=== PATIENT | female | born 1960 | race Caucasian/White ===

== ENCOUNTER → 2016-04-21 | Outpatient (CLI) | payer BC ==
[~2016-04-21] MED LIST: BACT2OIN2 TOP; CALCIUM PO; CODE30TA3 PO; FOSA70TA PO; PANT40TA2 PO; PERI0.126 MT; PROC30TA PO; VIT D PO; VITA500C10 PO
--- NOTE | 2016-04-22 14:11 | DEXA ---
AP SPINE L1 - L4 0.994 -1.6 -0.7 LT FEMUR TOTAL 0.877 -1.0 -0.3 RT FEMUR TOTAL 0.815 -1.5 -0.8 TOTAL BODY TOTAL OTHER DUAL FEMUR FRAX* ASSESSMENT Risk factors: Smoker/EtOH/secondary osteoporosis. 10 year probability of fracture Major osteoporotic fracture 6.3 % Hip fracture 1.1 % COMMENTS: There is low bone density of the spine. There is low bone density of the left hip. There is low bone density of the right hip. The increased density of the spine does represent a significant change since 07/2013. The increased density of the left hip does represent a significant change since 08/04/2013. The increased density of the right hip does represent a significant change. The density of the spine has decreased 1.9% since the initial exam on 05/2009. The spine density has increased 4.7% since the most recent exam on 07/2013. The density of the left hip has decreased 8.0% since the initial exam on 05/2009. The density of the left hip has increased 1.9% since the most recent exam on 2013. The density of the right hip has decreased 9.7% since the initial exam on 2009. The density of the right hip has increased 6.5% since the most recent exam on 2013. FOLLOW-UP: Recommendation for the next bone density exam: 2 years. KIM
== END ==
LOC: M WHC 07:39
PROVIDERS: ATTEND Internal Medicine
DX: M81.8 Other osteoporosis without current pathological fracture (principal)

== ENCOUNTER → 2016-10-28 | Outpatient (CLI) | payer BC ==
[~2016-10-28] MED LIST changes: +BACT2OIN10 TOP; -BACT2OIN2 TOP; +GABA-283; +NAPR500T PO; +NIFE30TA7; +NORCOTAB PO
--- NOTE | 2016-10-28 10:37 | REPMRS ---
Patient History The patient states she had a clinical breast exam in August 2016. Patient is postmenopausal. Family history of unknown cancer in father at age 50 or over and unknown cancer in mother at age 50 or over. Took hormonal contraceptives for 15 years. Took estrogen for 8 years. Digital Mammo Screening Bilat: October 28, 2016 - Exam #: [id number] Bilateral CC and MLO view(s) were taken. Technologist: Baylee Johnson, Technologist Prior study comparison: October 25, 2015, bilateral digital mammo screening bilat performed at [facility]. October 18, 2014, bilateral digital mammo screening bilat performed at [facility]. August 04, 2013, bilateral bilat screen digital mammo, performed at [facility] ([facility]). FINDINGS: The breast tissue is extremely dense which could obscure a lesion on mammography. There is an extremely dense symmetrical pattern of residual fibroglandular tissue. There has been no change in the appearance of the mammogram from the previous studies. There is no interval development of dominant mass, archetectural distortion, or microcalcific cluster suggestive of malignancy. ASSESSMENT: BI-RADS/ACR category 2 mammogram. Benign finding(s). Recommendation Routine screening mammogram of both breasts in 1 year (for women over age 40). This mammogram was interpreted with the aid of an FDA-approved computer-aided dectection system. Electronically Signed By: Jarek Aranda MD 10/28/16 [id number]
== END ==
LOC: M RAD 08:07
PROVIDERS: ATTEND Internal Medicine
DX: Z12.31 Encounter for screening mammogram for malignant neoplasm of breast (principal); Z78.0 Asymptomatic menopausal state; Z80.9 Family history of malignant neoplasm, unspecified; Z92.0 Personal history of contraception; Z92.23 Personal history of estrogen therapy

== ENCOUNTER 2017-01-04 11:40 | Emergency (ER) | payer OTHER, BC ==
[~2017-01-04] VITALS: Ht 170.2 cm; Wt 54.5 kg
[~2017-01-04 11:40] MED LIST changes: -GABA-283; -NAPR500T PO; -NIFE30TA7; -NORCOTAB PO
[2017-01-04 11:41] VITALS: BP 193/90
[2017-01-04] MEDS ORDERED: NIFE30TA7 (11:52)
[2017-01-04] MEDS ORDERED: GABA-283 (11:52)
--- NOTE | 2017-01-04 12:47 | REP ---
CHEST PA and LATERAL: 01/04/2017. Comparison 12/21/2014, 10/10/2013. CLINICAL HISTORY: 56-year-old female with chest pain. FINDINGS: Two-views show the lung cutler are mildly hyperinflated with prominent retrosternal clear space and increased AP diameter suggesting some hyperinflation and COPD. There is some peribronchial thickening that may reflect reactive airway disease or bronchitis. No dense consolidation, effusion, atelectasis or mass. No lateral pleural thickening, apical scarring or pneumothorax. Heart not enlarged. Airway are intact. Bony thorax without compression deformity. No free air under the diaphragm. IMPRESSION: 1. Hyperinflation and some peribronchial thickening in perihilar regions with mild prominence of pulmonary arteries. All this suggests COPD with some bronchitis or reactive airway disease. No dense consolidation or effusion. Signed by Scot Mcmahan MD 01/04/2017 01:24 P
[2017-01-04] MEDS ORDERED: NORCOTAB PO (14:43)
[2017-01-04] MEDS ORDERED: NAPR500T PO (14:43)
== END 2017-01-04 14:52 | disposition home or self-care (01) ==
LOC: M ED 11:40
DX: S20.211A Contusion of right front wall of thorax, initial encounter (principal); X50.9XXA Other and unspecified overexertion or strenuous movements or postures, initial encounter; Y92.59 Other trade areas as the place of occurrence of the external cause; Y93.89 Activity, other specified; Y99.0 Civilian activity done for income or pay; F17.210 Nicotine dependence, cigarettes, uncomplicated; Z79.899 Other long term (current) drug therapy; Z88.1 Allergy status to other antibiotic agents; Z88.2 Allergy status to sulfonamides

== ENCOUNTER 2017-01-11 07:15 | Emergency (ER) | payer OTHER, BC ==
[~2017-01-11] VITALS: Ht 170.2 cm; Wt 55.5 kg
[~2017-01-11 07:15] MED LIST changes: +GABA-283; +NAPR500T PO; +NIFE30TA7; +NORCOTAB PO
--- NOTE | 2017-01-11 08:26 | REP ---
Clinical: Right anterior rib injury. Technique: PA view of the chest with multiple oblique views of the right hemithorax. Findings: Very subtle nondisplaced fracture/injury involving the ninth and tenth ribs cannot definitively be excluded and should be correlated with mechanism of injury and point of tenderness. PA view of the chest demonstrates normal mediastinum and no obvious acute pleuroparenchymal process including pneumothorax, contusion, or effusion. Impression: Cannot definitively exclude a very subtle nondisplaced injury involving the ninth and tenth ribs. Correlation with mechanism of injury and point of tenderness may be warranted. Signed by Elan Dent MD 01/11/2017 08:18 A
[2017-01-11] MEDS ORDERED: NORCOTAB PO (08:31)
[2017-01-11 08:41] VITALS: BP 177/83
== END 2017-01-11 08:40 | disposition home or self-care (01) ==
LOC: M ED 07:15
DX: S22.41XA Multiple fractures of ribs, right side, initial encounter for closed fracture (principal); W19.XXXA Unspecified fall, initial encounter; W22.8XXA Striking against or struck by other objects, initial encounter; Y92.59 Other trade areas as the place of occurrence of the external cause; Y93.89 Activity, other specified; Y99.0 Civilian activity done for income or pay; F17.210 Nicotine dependence, cigarettes, uncomplicated; Z79.899 Other long term (current) drug therapy; Z88.1 Allergy status to other antibiotic agents; Z88.2 Allergy status to sulfonamides; Z85.819 Personal history of malignant neoplasm of unspecified site of lip, oral cavity, and pharynx

== ENCOUNTER → 2017-11-24 | Outpatient (CLI) | payer BC | LOC: M RAD 07:49 | DX: Z12.31 Encounter for screening mammogram for malignant neoplasm of breast (principal); Z92.23 Personal history of estrogen therapy | CPT/HCPCS: 77067 ==

== ENCOUNTER → 2018-02-23 | Outpatient (CLI) | payer BC ==
[~2018-02-23] MED LIST changes: -GABA-283; +GABA-845; +NAPR-50 PO; -NAPR500T PO; -PANT40TA2 PO; +PANT40TA3 PO
--- NOTE | 2018-02-23 08:15 | REP ---
Clinical: Lung screening. History nicotine dependence. Comparison: None. Technique: Axial low-dose noncontrast images from the thoracic inlet to the upper abdomen using lung screening technique. Findings: The lung cutler are well-aerated. There is a small 3 mm noncalcified density in the periphery of the anterior segment right upper lobe. No consolidation, pleural effusion/reaction or pneumothorax. Tracheobronchial tree is patent. Mediastinum demonstrates mild atherosclerotic changes of the coronary arteries without cardiomegaly. Impression: Lung-RADS category II. 3 mm nodule in the periphery of the right upper lobe. Management recommendations include annual low-dose CT follow-up examination. Reported risk of malignancy is less than 1%. Electronically Signed by Elan Dent MD 02/23/2018 08:06 A
== END ==
LOC: M RAD 07:40
PROVIDERS: ATTEND Internal Medicine
DX: Z12.2 Encounter for screening for malignant neoplasm of respiratory organs (principal); F17.210 Nicotine dependence, cigarettes, uncomplicated; R91.1 Solitary pulmonary nodule

== ENCOUNTER → 2018-03-03 | Outpatient (REF) | payer BC | LOC: M LAB REF 19:14 | PROVIDERS: ATTEND Otolaryngology | DX: C04.1 Malignant neoplasm of lateral floor of mouth (principal); F17.210 Nicotine dependence, cigarettes, uncomplicated ==

== ENCOUNTER → 2018-03-24 | Outpatient (CLI) | payer BC ==
[~2018-03-24] MED LIST changes: +ISOVUE-370 76% 100ML VIAL (Q9967) As Ordered ONE
--- NOTE | 2018-03-24 09:05 | REP ---
CT NECK WITH CONTRAST: HISTORY: Floor of mouth neoplasm. CONTRAST: Isovue 370 75 mL. The naso-, ronald- and hypopharynx, larynx and subglottic trachea are normal in appearance. The salivary and thyroid glands are normal size and density. Small lymph nodes less than 1 cm in size are present in the posterior triangles and submandibular areas. Atherosclerotic calcification is present at the carotid bifurcations. Minimal degenerative change is present in the cervical spine. The lung apices are clear. The visualized sinuses are clear. IMPRESSION: There is no neck mass or adenopathy. Electronically Signed by Naeem Chen MD 03/24/2018 09:06 A
== END ==
LOC: M RAD 07:34
PROVIDERS: ATTEND Otolaryngology
DX: C04.9 Malignant neoplasm of floor of mouth, unspecified (principal); M50.30 Other cervical disc degeneration, unspecified cervical region; I65.23 Occlusion and stenosis of bilateral carotid arteries
CPT/HCPCS: 70491; Q9967

== ENCOUNTER 2018-05-05 05:58 | Day surgery (SDC) | payer BC ==
--- NOTE | 2018-04-28 18:13 | CR ---
DATE: 04/28/2018 CONSULTATION FOR: Dr. 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 Surgery is scheduled for 05/05/2018 at [facility] ([facility]). Dear Dr. Inman: Thank you for asking me to see Ms. Ariela Weiner in consultation. She is, as you know, a 57-year-old female with past medical history of hypertension, tobacco, Raynaud's, gastroesophageal reflux disease (GERD), and oropharyngeal malignancy 2013 who had been in her usual state of health until this past March, when she noted an atypical lesion in the floor of her mouth. Biopsy was reportedly squamous cell CA. There is no evidence of spread, and the patient feels good moving forward for surgery. The patient continues to smoke three-quarters of a pack a day. She has absolutely no desire to quit and does not want to discuss it. She also drinks the equivalent of six beers a day. She has little desire to quit this as well. The patient reports significant work stressors. She is pleased that her blood pressure is as good as it is. She is compliant with her nifedipine. She denies any chest pain, palpitations, syncope, or presyncope. She also has had no difficulties with her Raynaud's. The patient denies any significant breathing problems, cough, or sputum production. The patient has GERD, and it is controlled off of pharmacologic therapy. The patient has known osteoporosis and is on a drug holiday from alendronate. The patient did a persistent cough over the holidays. She increased the use of her ProAir, and this resolved. REVIEW OF SYSTEMS Otherwise negative. She denies any fevers or chills, chest pain, or shortness of breath. PAST MEDICAL HISTORY: 1. Status post tonsillectomy/adenoidectomy. 2. History of viral arthralgias. 3. Low back pain. 4. G3, P1, spontaneous (AB) 2. History of vasectomy in her 5. Recurrent yeast infections. 6. Tobacco abuse. Previously one pack a day, now three-quarters of a pack a day. 7. Hypertension. 8. Cervical epithelial dysplasia, stage III, status post loop electrosurgical excision procedure (LEEP) procedure July 2004, followed by a vaginal hysterectomy and bilateral salpingo-oophorectomy in 2004. 9. Raynaud's 10. Bilateral cataract extraction, right 2007, left 2015. 11. 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 12. Hiatal hernia with chronic inflammation per esophagogastroduodenoscopy (EGD) in 2007 but normal hepatobiliary iminodiacetic acid (HIDA) scan in 2007. 13. Osteoporosis with history of nontraumatic foot fracture, presently on alendronate drug holiday. 14. Right carpal tunnel surgery June 2014. 15. 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 MEDICATIONS: - calcium plus D daily - fish oil daily - gabapentin 400 at bedtime - multivitamin daily - ProAir as needed - Procardia XL one daily - Replens as needed - Tylenol PM at bedtime DRUG ALLERGIES: BACTRIM with swelling in the hands and a rash. SOCIAL HISTORY: Works in [employer] at [employer] . Current smoker, three-quarters of a pack a day. Alcohol: A 6-pack a day. FAMILY HISTORY: Father with leukopenia. Mother had skin cancer, varicose veins. Sister had lupus. A grandmother with diabetes and lung cancer. PHYSICAL EXAMINATION: She is a thin female in no acute distress. VITAL SIGNS: Weight 125 with a body mass index (BMI) of 19.5, oxygen saturation is 98%, blood pressure 136/84 with a heart rate of 66. HEENT: Head is normocephalic. Neck is supple. Pupils equal, reactive to light. Extraocular movements are intact. Tympanic membranes slightly scarred. No thyromegaly. No cervical lymphadenopathy. No carotid bruits. No jugular venous distention (JVD). She has a well-healed left neck scar from previous oropharyngeal cancer. The floor of her mouth shows some atrophic scar tissue. Respiratory: Decreased breath sounds, kyphosis. CARDIOVASCULAR: Regular rate and rhythm. No murmur, rub, gallop. ABDOMEN: Thin, soft, nontender. No hepatosplenomegaly. EXTREMITIES: No cyanosis, clubbing, or edema. LABORATORY DATA: EKG 02/07/2018: Normal sinus rhythm, rate of 70, axis of 39, normal VA, QRS, QTC interval. Normal R-wave progression. Borderline left ventricular hypertrophy (LVH) with repolarization. Borderline LAE, unchanged compared to 11/05/2015. CT of the neck 03/24/2018 shows no mass or adenopathy. CT screening lung CT 02/23/2018 shows only a 3 mm nodule. Recommend annual low-dose CT scan. LABORATORY DATA: On 02/07/2018 she had a normal ALT, CBC, metabolic profile except for a sodium of 134, lipid, TSH, urinalysis (UA). IMPRESSION: Ms. Ariela Weiner is a 57-year-old female with a history of oropharyngeal malignancy, stage I, September 2013 with a small squamous cell cancer (CA) in the floor of the mouth, who will be going for wider margin resection 05/05/2018. The patient's cardiovascular risk factors are positive for tobacco abuse, hypertension, menopausal, but patient is very active and has no signs or symptoms indicative of cardiovascular ischemia and is felt to be at low risk for cardiovascular complications from the proposed surgical intervention, which can be further minimized by the following. 1. Hypertension. Take nifedipine as usual the evening before surgery. 2. Squamous cell CA of the oropharynx, residual neuropathy. Take gabapentin evening prior to surgery. 3. Tobacco abuse. Cessation advice discussed at length and refused. I have approved her taking her ProAir morning of surgery. 4. Hiatal hernia, asymptomatic without pharmacologic therapy. Takes Tums only as needed. Hold morning of surgery. 5. Osteoporosis. Hold calcium the morning of surgery. Alendronate has been on drug holiday. 6. Hyperlipidemia. Continue a healthy diet intervention. Fish oil 1 week before surgery. 7. Insomnia. She will take her Tylenol PM and gabapentin evening prior to surgery. Thank you very much for this consultation. Please call with questions or concerns. edited: 05/06/2018 [email or web address] eros ALVAREZ
[2018-05-05] VITALS (8 sets, daily range): BP systolic 127–153; BP diastolic 66–80
[~2018-05-05] VITALS: Ht 170.2 cm; Wt 53.4 kg
[~2018-05-05 05:58] MED LIST changes: +ACET300T47 PO; -CODE30TA3 PO; +FISH7.5C PO; -GABA-845; +GABA-845 PO; +HYDR-3715 PO; -ISOVUE-370 76% 100ML VIAL (Q9967) As Ordered ONE; +MULT1TAB10 PO; -NAPR-50 PO; +NAPR-837 PO; -NIFE30TA7; +NIFE30TA7 PO; -NORCOTAB PO; +TYLE1TAB5 PO
[2018-05-05] MEDS ORDERED: dexameTHASONE 4 MG/ML 1ML VIAL (J1100) IV ONE (06:00)
[2018-05-05] MEDS ORDERED: LR 1,000 ML IV ONE (06:00)
[2018-05-05] MEDS ORDERED: LIDOCAINE W/EPINEPHRINE 1% 20ML VIAL As Ordered ONE (07:09)
[2018-05-05] MEDS ORDERED: MIDAZOLAM INJ 2 MG/2 ML VIAL (J2250) As Ordered ONE (07:17)
[2018-05-05] MEDS ORDERED: ROCURONIUM BROMIDE 50 MG/5 ML VIAL As Ordered ONE (07:17)
[2018-05-05] MEDS ORDERED: fentaNYL 250 MCG/5 ML INJECTION (J3010) As Ordered ONE (07:17)
[2018-05-05] MEDS ORDERED: ONDANSETRON 4MG/2ML VIAL (J2405) As Ordered ONE (07:18)
[2018-05-05] MEDS ORDERED: LIDOCAINE 2% INJ 100 MG/5 ML SDV (FOR ANES.) As Ordered ONE (07:18)
[2018-05-05] MEDS ORDERED: PROPOFOL 200 MG/20 ML VIAL As Ordered ONE ×2 (07:18→10:55)
[2018-05-05] MEDS ORDERED: dexameTHASONE 4 MG/ML 1ML VIAL (J1100) As Ordered ONE (07:18)
[2018-05-05] MEDS ORDERED: SUCCINYLCHOLINE 100 MG/5 ML SYRINGE (J0330) As Ordered ONE (07:25)
[2018-05-05] MEDS ORDERED: OXYMETAZOLINE NASAL SPRAY (AFRIN) As Ordered ONE (07:25)
[2018-05-05] MEDS ORDERED: CEFUROXIME INJ 750 MG VIAL (J0697 PER 750MG) As Ordered ONE (07:28)
[2018-05-05] MEDS ORDERED: ePHEDrine SULFATE 25 MG/5 ML(5MG/ML) SYRINGE As Ordered ONE ×2 (07:53→08:31)
[2018-05-05] MEDS ORDERED: fentaNYL 100 MCG/2 ML INJECTION (J3010) As Ordered ONE (10:32)
[2018-05-05] MEDS ORDERED: BACITRACIN OINT 30GM As Ordered ONE (11:00)
[2018-05-05] MEDS ORDERED: ACETAMINOPHEN 325 MG TAB PO PRN (11:30)
[2018-05-05] MEDS ORDERED: METOCLOPRAMIDE INJ 10MG/2ML VIAL (J2765) IV PRN (11:30)
[2018-05-05] MEDS ORDERED: ONDANSETRON 4 MG TAB (S0181) PO PRN (11:30)
[2018-05-05] MEDS ORDERED: PERCOCET 5MG/325MG TAB PO PRN (11:45)
[2018-05-05] MEDS ORDERED: ONDANSETRON 4MG/2ML VIAL (J2405) IV PRN (11:45)
[2018-05-05] MEDS ORDERED: LR 1,000 ML IV SCH (11:45)
[2018-05-05] MEDS ORDERED: fentaNYL 100 MCG/2 ML INJECTION (J3010) IV PRN (11:45)
[2018-05-05] MEDS: NS 1,000 ML IV SCH ×2 (14:38→21:28)
[2018-05-05] MEDS: MORPHINE 4 MG/ML 1ML VIAL/SYRINGE (J2270) IV PRN ×3 (14:50→23:36)
[2018-05-05] MEDS: ASCORBIC ACID 500 MG TAB PO SCH (17:20)
[2018-05-05] MEDS: NIFEdipine 30 MG XL TAB PO SCH (17:20)
[2018-05-05] MEDS: CHLORHEXIDINE GLUCONATE 0.12 % 15ML UDC (PERIDEX ORAL RINSE) SSP SCH ×2 (17:21→19:48)
[2018-05-05] MEDS: BACITRACIN OINT 30GM TOP SCH ×2 (17:21→19:49)
[2018-05-05] MEDS ORDERED: GABAPENTIN 400 MG CAP PO SCH (21:00)
--- NOTE | 2018-05-05 21:08 | REP ---
Clinical: Feeding tube placement. Technique: Single supine view of the abdomen and pelvis. Findings: A feeding tube is identified in the left upper quadrant in seemingly satisfactory position. The bowel gas pattern is otherwise nonspecific. The irregular curvilinear area of density indents into the right mid abdomen of uncertain significance. This may represent artifact, but correlation with physical examination may be warranted. No obvious organomegaly. Skeletal structures appear intact. Impression: 1. Feeding tube in seemingly satisfactory position. 2. Curvilinear density along the right mid abdomen as described above may represent artifact although correlation may be warranted. Electronically Signed by Elan Dent MD 05/05/2018 08:59 P
[2018-05-06 04:00] VITALS: BP 128/70
[2018-05-06] MEDS: MORPHINE 4 MG/ML 1ML VIAL/SYRINGE (J2270) IV PRN ×2 (04:07→08:13)
[2018-05-06 06:06] LABS: ALBUMIN 3.3 GM/DL (3.2-5.2); ALT/SGPT 16 U/L (12-78); BILIRUBIN,TOTAL 0.7 MG/DL (0.2-1.0); BLOOD UREA NITROGEN 5 MG/DL (7-18); CARBON DIOXIDE LEVEL 29 MEQ/L (21-32); CHLORIDE LEVEL 105 MEQ/L (98-107); CREATININE FOR GFR 0.55 MG/DL (0.55-1.30); GLOMERULAR FILTRATION RATE > 60.0 (>51); GLUCOSE, FASTING 74 MG/DL (70-100); POTASSIUM SERUM 3.8 MEQ/L (3.5-5.1); SODIUM LEVEL 139 MEQ/L (136-145); TOTAL PROTEIN 6.4 GM/DL (6.4-8.2)
[2018-05-06 08:00] VITALS: BP 126/62
[2018-05-06] MEDS: ASCORBIC ACID 500 MG TAB PO SCH (08:11)
[2018-05-06 08:12] VITALS: BP 126/62
[2018-05-06] MEDS: NIFEdipine 30 MG XL TAB PO SCH (08:12)
[2018-05-06] MEDS: CHLORHEXIDINE GLUCONATE 0.12 % 15ML UDC (PERIDEX ORAL RINSE) SSP SCH (08:12)
[2018-05-06] MEDS: BACITRACIN OINT 30GM TOP SCH (08:12)
[2018-05-06] MEDS ORDERED: PERC10TA26 PO (08:41)
[2018-05-06] MEDS ORDERED: BACI50OI TOP (08:41)
--- NOTE | 2018-05-06 08:52 | DS.PDOC ---
Discharge Summary General Date of Admission Date of Discharge 05/06/2018 Primary Care Physician: Aisha Barrientos Attending Physician: KELLY DRAKE MD Discharge Summary PROCEDURES PERFORMED DURING STAY: Surgical excision of squamous cell carcinoma from the floor of mouth, with lymph node dissection ADMITTING DIAGNOSES: 1. Squamous Cell Carcinoma of the floor of mouth DISCHARGE DIAGNOSES: 1. Squamous Cell Carcinoma of the floor of mouth COMPLICATIONS/CHIEF COMPLAINT: Squamous Cell Carcinoma Of Floor Of Mouth. HISTORY OF PRESENT ILLNESS/ HOSPITAL COURSE: Patient presents for same day surgery for squamous cell carcinoma of the floor the mouth, with neck dissection. Surgery was performed by Dr. Drake. Today is post surgery day 1. Patient tolerated the surgery without any difficulty. She remained afebrile overnight. She is able tolerate by mouth food, as well as by mouth medication. She had no complaints this morning. She'll be discharged in stable condition. She will have follow-up in one week with Dr. Drake. DISCHARGE MEDICATIONS: Please see below. ALLERGIES: Please see below. PHYSICAL EXAMINATION ON DISCHARGE: VITAL SIGNS: Please see below. GENERAL APPEARANCE: Alert no acute distress. Nasogastric tube in place SKIN: Warm, well perfused. Surgical scar extending from right lateral mandible to midline of bone, no sinus infection, no purulent drainage, dried blood noted, blood in draining tube was also noted. LUNGS: Clear to auscultation bilaterally. HEART: Normal S1, S2. No murmurs, no rubs, no gallops ABDOMEN: Soft. No masses. Bowel sounds are present. EXTREMITIES: Moves all extremities equally. No gross deformities. PULSES: 2+ upper and lower extremity . LABORATORY DATA: Please see below. IMAGING: Abdominal x-ray 1. Feeding tube in seemingly satisfactory position. 2. Curvilinear density along the right mid abdomen as described above may represent artifact although correlation may be warranted. PROGNOSIS: Fair ACTIVITY: As tolerated. DIET: Mechanically soft DISCHARGE PLAN: To home, with follow-up with PCP and ENT DISCHARGE INSTRUCTIONS: 1. Maintain proper wound care 2. Follow-up with ENT ITEMS TO FOLLOWUP ON ON OUTPATIENT: 1. Surgical follow-up DISCHARGE CONDITION: Stable TIME SPENT ON DISCHARGE: Greater than 35 minutes. Vital Signs/I&Os Vital Signs Date Time Temp Pulse Resp B/P (MAP) Pulse Ox O2 Delivery O2 Flow Rate FiO2 05/06/18 08:13 18 05/06/18 08:12 126/62 05/06/18 04:00 99.5 63 99 I&O- Last 24 Hours up to 6 AM 05/06/18 06:00 Intake Total 5100 ml Output Total 4050 ml Balance 1050 ml Laboratory Data Labs 24H Laboratory Tests 2 05/06/18 05:12: Anion Gap 5L, Glomerular Filtration Rate > 60.0, Blood Urea Nitrogen 5L, Creatinine 0.55, Sodium Level 139, Potassium Level 3.8, Chloride Level 105, Carbon Dioxide Level 29, Calcium Level 8.0L, Aspartate Amino Transf (AST/SGOT) 17, Alanine Aminotransferase (ALT/SGPT) 16, Alkaline Phosphatase 49, Total Bilirubin 0.7, Total Protein 6.4, Albumin 3.3, Albumin/Globulin Ratio 1.06 CBC/BMP Laboratory Tests 05/06/18 05:12 Calcium Level 8.0 L, Aspartate Amino Transf (AST/SGOT) 17, Alanine Aminotransferase (ALT/SGPT) 16, Alkaline Phosphatase 49, Total Bilirubin 0.7, Total Protein 6.4, Albumin 3.3 Discharge Medications Scheduled (Tylenol Pm Extra Strength 500-25 mg) 1 Tab Tab, 1 TAB PO QHS, (Reported) Ascorbic Acid (Vitamin C 500 mg) 1 Chw Chw, 500 MG PO DAILY, (Reported) Bacitracin (Bacitracin) 500 Unit/Gm Oin, 0 DOSE TOP TID Use on wound 3 times a day Gabapentin (Gabapentin) 400 Mg Cap, 400 MG PO QHS, (Reported) Multivitamins (Multivitamin Adults) 1 Tab Tab, 1 TAB PO DAILY, (Reported) Nifedipine (Nifedipine ER) 30 Mg Tab, 30 MG PO DAILY, (Reported) Emerson 3 Polyunsat Fatty Acids (Fish Oil 1000 mg) 1 Cap Cap, 1 CAP PO DAILY, (Reported) [Calcium/Vit D] , 2 TABS PO DAILY, (Reported) Scheduled PRN Oxycodone/Acetaminophen (Percocet 10-325 mg) 1 Tab Tab, 1 TAB PO Q6HP PRN for pain Allergies Coded Allergies: Sulfamethoxazole w/Trimethoprim (Unverified Allergy, Mild, SWELLING OF HANDS WITH RASH, 11/08/15) GME ATTESTATION GME ATTESTATION My faculty preceptor for this patient encounter was physically present during the encounter and was fully available. All aspects of the patient interview, examination, medical decision making process, and medical care plan development were reviewed and approved by the faculty preceptor. The faculty preceptor is aware and concurs with the plan as stated in the body of this note and will attest to such by his/her cosignature. SUNNY EVERETT DO May 06, 2018 08:52
[2018-05-06] MEDS ORDERED: AUGM500T34 PO (08:55)
[2018-05-06] MEDS ORDERED: OMEGA-3 1000MG CAPSULE PO SCH (09:00)
[2018-05-06] MEDS ORDERED: MULTIVITAMINS/MINERALS THERAP 1 TAB PO SCH (09:00)
--- NOTE | 2018-06-14 12:18 | RO ---
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 PROCEDURE PERFORMED: 1. Reexcision of the squamous cell carcinoma of the floor of the mouth, left paramedian position. 2. Adjacent tissue rearrangement of the mucosa from the ventral tongue to the floor of the mouth, 3 cm x 2 cm. 3. Right neck dissection, level I, II, III. SURGEON: David Inman MD RN CASE MANAGER HOSPICE: Dr. Dawit Butts ANESTHESIA: General. CLINICAL PREAMBLE: This 57-year-old woman has had squamous cell carcinoma of the floor of the mouth resected in 2013, as well as a left neck dissection done at that time as well. The patient subsequently developed a recurrence of squamous cell carcinoma of the floor of the tongue along the left paramedian position. Management options, including reexcision of the floor of the mouth squamous cell carcinoma with a right neck dissection have been discussed with the patient and she understood and consented to the procedure. DESCRIPTION OF PROCEDURE: The patient was identified and had the right neck marked. She was brought to the operating room in stable condition. She was laid in supine position on the operating room table, the patient received general anesthesia. The patient was prepped and draped in the usual fashion for the procedure. The oral cavity was retracted open and the tongue was retracted superiorly to allow exposure of the floor of the mouth. The previously excised area over the left paramedian position on the floor of the mouth region was identified and infiltrated with 1% lidocaine with 1:100,000 epinephrine. The floor of the mouth was then excised with 1 cm depth. The specimen measured 1.4 x 0.7 cm. This was sent to pathology for intraoperative frozen section. No invasive carcinoma was identified, however, high grade dysplasia was noted on the anterior median margin. Excision was then performed to allow the clear margins on the reexcision of the tissue. The additional resection measured 1.4 x 0.9 cm in size. At this time, due to sizeable mucosal defect on the floor of the mouth, a decision was made to perform mucosal adjacent tissue rearrangement via a rhomboid flap fashion. Tissue rearrangement was 3 x 2 cm size. The mucosa was mobilized off of the ventral surface of the tongue. Meticulous undermining of the mucosa was carried out and carefully placed over the floor of the mouth anterior and medially. Suturing was performed to allow tension free closure to provide complete coverage of the mucosa to the floor of the mouth. At this time, a new set up was done to allow performance of the right neck dissection. The patient was prepped and draped in the usual fashion for the procedure. Incision was outlined over the right neck region. Skin flap was developed, along with the platysma. Platysmal flap was developed superior to the level of the marked inferior border of the mandible. The anterior border of the sternocleidomastoid muscles was identified and dissected. The facial vein was identified and ligated. This was retracted superiorly to allow protection of the marginal mandibular nerve. Fibrofatty tissue was mobilized off from the submental lymph node region. The right submandibular vein was identified and mobilized. The submandibular ganglion was identified and resected. The lingual nerve and hypoglossal nerve were identified and carefully preserved. The Gila's duct was identified and ligated and then resected to be included in the specimen as well. The submental space was then clear of the fibrofatty tissue. At this time, additional dissection was carried out on the sternocleidomastoid muscle down to the level of the omohyoid muscle. The hypoglossal and accessory nerves were identified and preserved. The internal jugular vein and the carotid artery were carefully dissected and preserved. The entire fibrofatty tissue specimen was then mobilized off from the underlying tissue to allow en-bloc resection of level I, II and III of the right cervical lymph node chain. Hemostasis was achieved using bipolar electrocautery. The hypoglossal nerve was stimulatable at the end of the case. FLORA drain was then placed. The skin was then closed in two layers. 3-0 Vicryl was used to reapproximate the platysmal muscle and Prolene was used to close the skin layer. Bacitracin was applied to the neck incision. My help desk assistant, Dr. Butts, provided the retraction to allow clear visualization of critical anatomic structures to allow safe performance of the procedure. At the end of the procedure, sponge and instrument counts were correct. No complications. Estimated blood loss less than 50 ml. General anesthesia was reversed and the patient was extubated and brought to the recovery room in stable condition. KIM
== END 2018-05-06 11:03 | disposition home or self-care (01) ==
LOC: M SDC 05:58 → M PCU 14:15 → M SDC 05-06 11:03
PROVIDERS: ATTEND Otolaryngology
DX: C04.9 Malignant neoplasm of floor of mouth, unspecified (principal); I10 Essential (primary) hypertension; I73.00 Raynaud's syndrome without gangrene; K21.9 Gastro-esophageal reflux disease without esophagitis; M81.0 Age-related osteoporosis without current pathological fracture; M54.5 Low back pain; K57.30 Diverticulosis of large intestine without perforation or abscess without bleeding; F41.9 Anxiety disorder, unspecified; R29.898 Other symptoms and signs involving the musculoskeletal system; Z88.1 Allergy status to other antibiotic agents; Z79.899 Other long term (current) drug therapy; Z72.0 Tobacco use; Z96.1 Presence of intraocular lens; Z98.41 Cataract extraction status, right eye; Z98.42 Cataract extraction status, left eye; Z85.828 Personal history of other malignant neoplasm of skin; Z90.710 Acquired absence of both cervix and uterus
CPT/HCPCS: 14040; 36415; 38724; 74018; 80053; 88305; 88307; J0330; J0697; J2250; J2270; J2405; J3010

== ENCOUNTER → 2018-05-24 | Outpatient (CLI) | payer BC ==
[~2018-05-24] MED LIST changes: -ACET300T47 PO; +AUGM500T34 PO; +BACI50OI TOP; +CODE30TA3 PO; -HYDR-3715 PO; +NAPR-50 PO; -NAPR-837 PO; +NORCOTAB PO; +PERC10TA26 PO
--- NOTE | 2018-05-25 14:07 | RADONC ---
RADIATION ONCOLOGY CONSULTATION NOTE DATE OF CONSULTATION: 05/24/2018 CHART NUMBER: [id number] DIAGNOSIS: Floor of mouth squamous cell carcinoma. STAGE: Stage I, T1N0M0. ECOG PERFORMANCE STATUS: 0. CONSULTATION NOTE: Ms. 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 HISTORY OF PRESENT ILLNESS: The patient has a long history of significant smoking and alcohol use. Apparently, she drinks ten beers day and had smoked cigarettes daily for over 35 years. In mid 2013, she was found to have an area under her tongue on the left side. This was resected on 09/06/2013 and found to be a moderately differentiated squamous cell carcinoma. On 10/16/2013, the patient underwent a re-excision of her floor of mouth. Pathology revealed fragments of hyperkeratotic and parakeratotic squamous mucosa with benign submucosal salivary gland tissue. There was no residual carcinoma seen. Total of two lymph nodes were resected on the left at the level 1 region and no metastatic carcinoma was seen. There was one benign submandibular gland. There was also resection at the levels II and III region in the left neck and again no evidence of satish metastatic disease was found. The patient was followed closely by Dr. Inman and has done well overall for 4-1/2 years. On 03/03/2018, the patient was pound found to have a lesion in the mid floor of the mouth, which underwent resection and pathology revealed a superficially invasive squamous cell carcinoma, which was well-differentiated. All margins of resection were free of malignancy. On 05/05/2018, Dr. nIman went into re-excise the patient's floor of mouth, as well as to remove lymph nodes in the right and left neck. There was no residual invasive cell carcinoma in the floor of mouth. There was high-grade squamous dysplasia of the anterior and medial margins. There was also focal mild to moderate squamous dysplasia in a second resected specimen. A total of five lymph nodes were sampled on the right, which were all negative for malignancy, as was one lymph node at the level II lymph node in the left, which was also negative for malignancy. The tumor has therefore been staged as a stage I, T1N0M0 well-differentiated squamous cell carcinoma of the floor of mouth. PAST MEDICAL HISTORY: The patient's past medical history is positive for cataracts in the right eye, which were resected in 2007 and cataract in the left eye which was taken out in 2016. She had a hysterectomy. The patient had a tonsillectomy as well. She was reported to have some type of malignant skin cancer removed in 2014. ALLERGIES: The patient is allergic to BACTRIM. SOCIAL HISTORY: As noted above, the patient has smoked for the past 35 years, at least a pack of cigarettes per day. She drinks eight to ten cans of beer a day. FAMILY HISTORY: The patient's family history is positive for her mother with skin cancer. REVIEW OF SYSTEMS: The patient's review of systems is noncontributory. Denies nausea, vomiting, fevers, chills, night sweats, diplopia, headaches, anxiety or depression, anorexia, weight loss, visual disturbances, chest pain, urinary or bowel difficulties, bone pain, or neurological problems. PHYSICAL EXAMINATION The patient is a well-developed, well-nourished 57-year-old white female in no acute distress. HEENT: Exam is normocephalic, atraumatic. Extraocular movements are intact. Examination of the patient's oral cavity reveals her to be healing nicely from her surgery. I see no other evidence of nodularity ulceration or residual disease. There is no palpable preauricular, cervical, supraclavicular, infraclavicular or axillary lymphadenopathy present. She has a healed surgical scar present over neck consistent with her above history. Her lungs are clear to auscultation and percussion. Heart has regular rate and rhythm. ASSESSMENT: I had a lengthy discussion with this patient. At this time, I am quite concerned with her rather heavy smoking and drinking, which has led to two malignancies already in this rather young woman. I have had a long discussion with the need to stop smoking as soon as possible and stop the drinking too. I stressed to her that she has been quite jose luis having well-differentiated tiny tumors with no lymphadenopathy, which could be taken care of with resection alone. If she continues on her present path undoubtedly she will develop a new malignancy and may not be as jose luis. I explained to the patient that at this time I do not see a role for radiation. Indeed, I think she is likely to develop a malignancy in another head and neck site or lung if she is to have recurrence in the floor of mouth. I have reviewed the NCCN guidelines for recurrent head and neck cancers. Following the path for a local recurrence that is resectable, the recommendation would be surgery and if no adverse features found at surgery then observation. The adverse features include extranodal extension and/or positive margins. I think this patient is at high risk for another head and neck malignancy and I have recommended at this point close observation. Since we are almost 5 years since the initial tumor, I believe this is most likely new primary site and therefore appropriately staged as grade 1, stage I, T1N0M0 malignancy, in which case the curative treatment of course would be resection alone. Even if this were a recurrence, it would still be limited and the guidelines recommend just followup. Again, there were no adverse features, such as extranodal extension, positive margins, a T3 or T4 lesion, N2 or N3 disease, perineural invasion, vascular invasion or lymphatic invasion. Had any of these taken place then of course the recommendations would be different and I would be more willing to consider postoperative radiation therapy. I have scheduled the patient for discussion at our multidisciplinary tumor conference. The patient is scheduled to be seen by Dr. Inman in 4 weeks and will continue close followup indefinitely through his office. Once again, I have discussed in detail the risks and the likelihood of developing another head and neck or lung malignancy if she does not undergo smoking cessation and discontinuation of the alcohol intake. She has been quite jose luis so far. cc: MD Aisha Fan MD MTDD
== END ==
LOC: M ONCR 09:21
PROVIDERS: ATTEND Radiology Radiation Oncology
DX: C04.9 Malignant neoplasm of floor of mouth, unspecified (principal)

== ENCOUNTER → 2018-07-06 | Outpatient (CLI) | payer BC ==
[~2018-07-06] MED LIST changes: +ACET300T47 PO; -CODE30TA3 PO; +HYDR-3715 PO; -NAPR-50 PO; +NAPR-837 PO; -NORCOTAB PO
--- NOTE | 2018-07-08 10:07 | DEXA ---
AP SPINE L1 - L4 0.964 -1.9 -1.0 LT FEMUR TOTAL 0.841 -1.3 -0.6 LT NECK 0.846 -1.4 -0.3 RT FEMUR TOTAL 0.808 -1.6 -0.9 RT NECK 0.777 -1.9 -0.8 TOTAL BODY TOTAL OTHER COMMENTS: There is low bone density of the spine. The decreased density of the spine does represent a significant change. The decreased density of the left hip does represent a significant change. The decreased density of the right hip does not represent a significant change. The density of the spine has decreased 4.8% since the initial exam on 06/17/2009. The spine density has decreased 3.0% since the most recent exam on 04/21/2016. The density of the left hip has decreased 11.8% since the initial exam on 06/17/2009. The density of the left hip has decreased 4.1% since the most recent exam on 04/21/2016. The density of the right hip has decreased 10.5% since the initial exam on 06/17/2009. The density of the right hip has decreased 0.9% since the most recent exam on 04/21/2016. FOLLOW-UP: Recommendation for the next bone density exam: 2 years. KIM
== END ==
LOC: M WHC 08:00
PROVIDERS: ATTEND Internal Medicine
DX: M85.89 Other specified disorders of bone density and structure, multiple sites (principal)

== ENCOUNTER 2018-08-23 06:02 | Emergency (ER) | payer BC ==
[~2018-08-23] VITALS: Ht 170.2 cm; Wt 55.5 kg
[2018-08-23] MEDS ORDERED: NS 1,000 ML IV ONE (06:30)
[2018-08-23 06:49] LABS: BASO # 0.1 10^3/uL (0.0-0.2); BASO % 0.9 % (0.0-1.0); EOS # 0.1 10^3/uL (0.0-0.50); EOS % 0.9 % (0.0-3.0); HEMATOCRIT 36.3 % (36.0-47.0); HEMOGLOBIN 12.6 g/dl (12.0-15.5); LYMPH # 1.5 10^3/uL (1.5-4.5); LYMPH % 18.6 % (24.0-44.0); MEAN CORPUSCULAR HEMOGLOBIN 34.1 pg (27.0-33.0); MEAN CORPUSCULAR HGB CONC 34.7 g/dl (32.0-36.5); MEAN CORPUSCULAR VOLUME 98.1 fl (80.0-96.0); MONO # 0.8 10^3/uL (0.0-0.8); MONO % 10.8 % (0.0-5.0); NEUTROPHILS # 5.3 10^3/uL (1.8-7.7); NEUTROPHILS % 68.3 % (36.0-66.0); PLATELET COUNT, AUTOMATED 234 10^3/uL (150-450); WHITE BLOOD COUNT 7.8 10^3/uL (4.0-10.0)
[2018-08-23 06:53] LABS: ALBUMIN 4.3 GM/DL (3.2-5.2); ALT/SGPT 27 U/L (12-78); BILIRUBIN,DIRECT 0.2 MG/DL (0.0-0.2); BILIRUBIN,TOTAL 0.6 MG/DL (0.2-1.0); BLOOD UREA NITROGEN 8 MG/DL (7-18); CARBON DIOXIDE LEVEL 25 MEQ/L (21-32); CHLORIDE LEVEL 99 MEQ/L (98-107); CREATININE FOR GFR 0.74 MG/DL (0.55-1.30); GLOMERULAR FILTRATION RATE > 60.0 (>51); GLUCOSE, FASTING 103 MG/DL (70-100); LIPASE 137 U/L (73-393); POTASSIUM SERUM 4.4 MEQ/L (3.5-5.1); SODIUM LEVEL 132 MEQ/L (136-145); TOTAL PROTEIN 7.9 GM/DL (6.4-8.2)
--- NOTE | 2018-08-23 08:38 | REPVR ---
EXAM: CT Abdomen and Pelvis Without Contrast EXAM DATE/TIME: 08/23/2018 6:50 AM CLINICAL HISTORY: 57 years old, female; Abdominal pain; Acute; Prior surgery; Surgery date: 6+ months; Surgery type: Hysteron for cancer; Additional info: Rlq/r flank pain TECHNIQUE: Imaging protocol: Axial computed tomography images of the abdomen and pelvis without contrast. Coronal and sagittal reformatted images were created and reviewed. Radiation optimization: All CT scans at this facility use at least one of these dose optimization techniques: automated exposure control; mA and/or kV adjustment per patient size (includes targeted exams where dose is matched to clinical indication); or iterative reconstruction. COMPARISON: CT ABD PELVIS W/O CONTRAST 03/23/2014 4:45 PM FINDINGS: Liver: Hepatomegaly longitudinal diameter 18.2 CM. Gallbladder and bile ducts: Normal. No calcified stones. No ductal dilation. Pancreas: Normal. No ductal dilation. Spleen: Normal. No splenomegaly. Adrenals: Normal. No mass. Kidneys and ureters: Nonspecific left perinephric soft tissue stranding. Stomach and bowel: Limitation by the lack of contrast media for detailed organ and bowel assessment. Accentuation of the wall of the stomach which may be on the basis of nondistention. Extensive colonic diverticulosis. Focal fluid-filled distal small bowel confluent in the right pelvis. Appendix: No evidence of appendicitis. Intraperitoneal space: Normal. No free air. No significant fluid collection. Vasculature: Calcified abdominal aorta. Lymph nodes: Normal. No enlarged lymph nodes. Bladder: Unremarkable as visualized. Reproductive: Postoperative hysterectomy with prominent vaginal cuff site soft tissues. Bones/joints: Degenerative change of the spine. Degenerative vacuum disc L5-S1 with interspace narrowing. Soft tissues: Unremarkable. IMPRESSION: 1. Mild asymmetric accentuated left perinephric soft tissue stranding with minimal left proximal ureteral dilatation without visualized obstructing lesion. Correlate clinically for the possibility of other etiologies of mild ureteral obstruction or infection etiology of the left kidney. The extent of left perinephric stranding is similar compared to the prior CT of 03/23/14. 2. Prominent colonic diverticulosis. 3. Focal fluid-filled distal small bowel in the right pelvis limited in assessment without overall obstructive pattern. Electronically signed by: Patricia David On 08/23/2018 08:38:05 AM
[2018-08-23 09:52] VITALS: BP 139/65
--- NOTE | 2018-08-29 14:42 | ED PDOC ---
Post-Departure Follow-Up dr childers faxed formal report of ct abd/p for fu Jackie Blanc MD Aug 29, 2018 14:42
== END 2018-08-23 10:06 | disposition home or self-care (01) ==
LOC: M ED 06:02
DX: K57.90 Diverticulosis of intestine, part unspecified, without perforation or abscess without bleeding (principal); K52.9 Noninfective gastroenteritis and colitis, unspecified; N28.89 Other specified disorders of kidney and ureter; I10 Essential (primary) hypertension; Z79.899 Other long term (current) drug therapy; Z88.2 Allergy status to sulfonamides; Z88.8 Allergy status to other drugs, medicaments and biological substances; F17.210 Nicotine dependence, cigarettes, uncomplicated

== ENCOUNTER → 2018-12-26 | Outpatient (REF) | payer BC | LOC: M LAB REF 13:08 | PROVIDERS: ATTEND Otolaryngology | DX: C04.9 Malignant neoplasm of floor of mouth, unspecified (principal) ==

== ENCOUNTER → 2018-12-30 | Outpatient (CLI) | payer BC ==
--- NOTE | 2018-12-30 08:24 | REPMRS ---
Patient History The patient states she had a clinical breast exam in 2018.Patient is postmenopausal. Family history of unknown cancer at age 50 or over in mother, unknown cancer at age 50 or over in father. Took hormonal contraceptives for 15 years. Took estrogen for 8 years. Digital Mammo Screening Bilat: December 30, 2018 - Exam #: [id number] Bilateral CC and MLO view(s) were taken. Technologist: Marielena Marshall, Technologist Prior study comparison: November 24, 2017, bilateral digital mammo screening bilat performed at [facility]. October 28, 2016, bilateral digital mammo screening bilat performed at [facility]. October 25, 2015, bilateral digital mammo screening bilat performed at [facility]. FINDINGS: The breast tissue is extremely dense which could obscure a lesion on mammography. There is an extremely dense symmetrical pattern of residual fibroglandular tissue. There has been no change in the appearance of the mammogram from the previous studies. There is no interval development of dominant mass, archetectural distortion, or grouped microcalcifications suggestive of malignancy. 3-D tomosynthesis shows no additional findings. Assessment: BI-RADS/ACR category 1 mammogram. Negative Mammogram. Recommendation Routine screening mammogram of both breasts in 1 year (for women over age 40). This patient's Lifetime Breast Cancer RIsk is estimated at 6.4 %. This mammogram was interpreted with the aid of an FDA-approved computer-aided dectection system. Electronically Signed By: Jarek Aranda MD 12/30/18 0823
== END ==
LOC: M RAD 07:53
PROVIDERS: ATTEND Internal Medicine
DX: Z12.31 Encounter for screening mammogram for malignant neoplasm of breast (principal)

== ENCOUNTER → 2019-01-11 | Outpatient (CLI) | payer BC ==
[~2019-01-11] MED LIST changes: +ACET25TA12 PO; +ALEN70TA74 PO; +CALC1TAB63 PO; +CALC500T38 PO; +ISOVUE-370 76% 100ML VIAL (Q9967) As Ordered ONE; +MULTTAB24 PO
--- NOTE | 2019-01-11 10:38 | REP ---
CT neck: 01/11/2019. Indication: Neck mass. Comparison: 03/24/2018. Technique: Axial images of the neck soft tissues were obtained following IV administration of 75 ml Isovue 370. Findings: There is no abnormal solid soft tissue mass, abnormal fluid collection or cervical lymphadenopathy. Bilateral carotid atherosclerotic disease is present. The submandibular, parotid and thyroid glands are without focal abnormality. No significant ocular, intraorbital or intracranial abnormalities are detected. The airway is patent. The visualized lungs are clear. Impression: No abnormal solid soft tissue mass, abnormal fluid collection or cervical lymphadenopathy. Electronically Signed by aGbriele Ellis DO 01/11/2019 10:30 A
== END ==
LOC: M RAD 09:17
PROVIDERS: ATTEND Otolaryngology
DX: C04.9 Malignant neoplasm of floor of mouth, unspecified (principal)
CPT/HCPCS: 70491; Q9967

== ENCOUNTER 2019-01-13 08:54 | Day surgery (SDC) | payer BC ==
--- NOTE | 2019-01-12 02:25 | CR ---
DATE OF CONSULTATION: 01/13/2019 Preoperative consultation on Ariela Weiner for Dr. Inman for surgery scheduled 01/13/2019, for recurrent squamous cell carcinoma (CA) of the floor of the mouth. Dear Dr. Inman: Thank you very much for asking me to see Ms. Ariela Weiner in consultation prior to her oral surgery dissection of recurrence of squamous cell CA. As you know, Ms. Weiner is a 58-year-old female with a past medical history of hypertension, gastroesophageal reflux disease (GERD), Raynaud's, tobacco abuse, oropharyngeal malignancy dating back to 2013, who has been in her usual state of health until noting an atypical area on the floor of her mouth about 2 months ago[address] Patient contacted Dr. Inman's office for appointment, and biopsy confirmed a recurrence of her squamous cell CA. The patient is not upset about this, feels it is life, and is eager to get the surgery over and get on with her life. Patient continues to smoke and drink. She has little to no desire of cutting back or quitting. Patient reports significant work stressors and even today, at her preoperative visit, is eager to get back to work. Patient has history of GERD, symptomatically controlled without pharmacologic therapy. Patient does have occasional dyspnea and sparingly uses her ProAir. Patient has history of Raynaud's. She is on Procardia but will do conservative intervention as well. Patient has history of atrophic vaginitis, uses her Replens. Patient has history of hypertension but denies chest pain, palpitations, syncope, or presyncope. PAST MEDICAL HISTORY: 1. Status post tonsillectomy/adenoidectomy. 2. History of viral arthralgias. 3. Chronic low back pain. 4. G3, P1, spontaneous (AB) 2, history of a vasectomy. 5. Recurrent yeast infections. 6. Tobacco abuse. 7. Hypertension. 8. Cervical epithelial dysplasia stage III, status post loop electrosurgical excision procedure (LEEP) procedure 2004 followed by a vaginal hysterectomy with bilateral salpingo-oophorectomy (BSO) in 2004. 9. Raynaud's. 10. Bilateral cataract extraction 2007 and 2015. 11. Squamous cell CA of the left frazier 2012. 12. Squamous cell CA of the oropharynx stage I malignancy status post resection September 2013 and recurrent resection April 2018. 13. Hiatal hernia with chronic inflammation per esophagogastroduodenoscopy (EGD) 2007. Normal hepatobiliary iminodiacetic acid (HIDA) scan 2007. 14. Osteoporosis. 15. History of nontraumatic foot fracture treated with alendronate followed by drug holiday and resumption of alendronate. 16. Right carpal tunnel surgery June of 2014. MEDICATIONS: - alendronate 70 mg weekly - calcium citrate plus D twice a day - gabapentin 400 mg at bedtime - multivitamin daily - ProAir as needed - Procardia XL 30 mg daily - Replens topically 2-3 times a week - Tylenol PM as needed at bedtime ALLERGIES: The patient's drug allergies are to BACTRIM. She did have gastrointestinal (GI) side effects on Chantix. SOCIAL HISTORY: Works in the [employer]. . Current smoker. Current heavy drinker. FAMILY HISTORY: Father with leukopenia. Mother had skin cancer, varicose veins. Sister lupus. A grandmother with diabetes and lung cancer. PHYSICAL EXAMINATION: Thin female, anxious, eager to get back to work, but in no acute distress. Vital signs are weight 126 with a body mass index (BMI) of 19.6. Oxygen saturation after exertion is 100%. Blood pressure 142/74 with a heart rate of 65. Head is normocephalic. Neck is supple. Pupils equal, reactive to light. Extraocular movements are intact. Tympanic membranes slightly scarred. No thyromegaly, cervical lymphadenopathy, carotid bruits, or jugular venous distention (JVD). She has a well-healed left neck scar from previous oropharyngeal cancer. The floor of her mouth shows a biopsy scar but no significant pathology. Respiratory: Kyphosis. Decreased breath sounds. Cardiovascular: Regular rate, rhythm. No murmur, rub, or gallop. Abdomen: Soft and nontender. No hepatosplenomegaly. Extremities: No cyanosis, clubbing, or edema. LABORATORY DATA: Today, 01/06/2019, normal CBC, med profile, liver panel. EKG normal sinus rhythm, rate of 65, axis of 45. Normal IN, QRS, QTc interval. Normal R-wave progression, but borderline left ventricular hypertrophy (LVH), left atrial enlargement (LAE), and repolarization changes without significant change compared to previous EKG. IMPRESSION: Ms. Ariela Ren, 58-year-old female, history of stage I oropharyngeal malignancy September 2013, who had a recurrence and resection in April of 2018, now presents with a second recurrence. Patient's cardiovascular risk factors are positive for tobacco abuse, hypertension, menopause, but she is active with no signs or symptoms of cardiovascular ischemia and is felt to be optimized and at low risk for cardiovascular complications from the proposed surgical intervention. Risks can be further minimized by the following: PROBLEMS: 1. Hypertension. Take nifedipine as usual morning before surgery. 2. Tobacco abuse. Cessation advice given. Patient not interested. She will use ProAir prophylactically before surgery. 3. Hiatal hernia, asymptomatic. Takes Tums only on an as-needed basis. 4. Osteoporosis. Hold alendronate, calcium D morning of surgery. 5. Hyperlipidemia. Fish oil already on hold. 6. Insomnia. She will take her gabapentin and Tylenol PM as needed before surgical intervention. 7. Squamous cell CA of the neck. She is on the gabapentin for some residual nerve-based pain. She will take this as usual the evening prior to surgery. Thank you very much for this consultation. Please call with questions or concerns.
[~2019-01-13] VITALS: Ht 172.7 cm; Wt 55.8 kg
[~2019-01-13 08:54] MED LIST changes: -ISOVUE-370 76% 100ML VIAL (Q9967) As Ordered ONE; +LR 1,000 ML IV ONE; +dexameTHASONE 4 MG/ML 1ML VIAL (J1100) IV ONE
[2019-01-13] MEDS ORDERED: LIDOCAINE 2% INJ 100 MG/5 ML SDV (FOR ANES.) As Ordered ONE (10:28)
[2019-01-13] MEDS ORDERED: fentaNYL 250 MCG/5 ML INJECTION (J3010) As Ordered ONE (10:28)
[2019-01-13] MEDS ORDERED: MIDAZOLAM INJ 2 MG/2 ML VIAL (J2250) As Ordered ONE (10:28)
[2019-01-13] MEDS ORDERED: ROCURONIUM BROMIDE 50 MG/5 ML VIAL As Ordered ONE ×2 (10:28→12:14)
[2019-01-13] MEDS ORDERED: PROPOFOL 200 MG/20 ML VIAL As Ordered ONE ×2 (10:28→12:36)
[2019-01-13] MEDS ORDERED: LIDOCAINE W/EPINEPHRINE 1% 20ML VIAL As Ordered ONE (11:03)
[2019-01-13] MEDS ORDERED: PHENYLEPHRINE 0.5% NASAL SPRAY 15 ML As Ordered ONE (11:42)
[2019-01-13] MEDS ORDERED: ePHEDrine SULFATE 25 MG/5 ML(5MG/ML) SYRINGE As Ordered ONE (12:13)
[2019-01-13] MEDS ORDERED: GLYCOPYRROLATE INJ 0.2 MG/ML 2 ML VIAL As Ordered ONE (12:31)
[2019-01-13] MEDS ORDERED: ONDANSETRON 4MG/2ML VIAL (J2405) As Ordered ONE (12:45)
[2019-01-13] MEDS ORDERED: HYDROMORPHONE HCL 0.5 MG/ 0.5 ML SYRINGE (J1170 PER 1) IV PRN (14:00)
[2019-01-13] MEDS ORDERED: fentaNYL 100 MCG/2 ML INJECTION (J3010) IV PRN (14:00)
[2019-01-13] MEDS ORDERED: ONDANSETRON 4MG/2ML VIAL (J2405) IV PRN (14:00)
[2019-01-13] MEDS ORDERED: METOCLOPRAMIDE INJ 10MG/2ML VIAL (J2765) IV PRN (14:00)
[2019-01-13] MEDS ORDERED: LR 1,000 ML IV SCH (14:00)
[2019-01-13 14:45] VITALS: BP 145/74
== END 2019-01-13 15:05 | disposition home or self-care (01) ==
LOC: M SDC 08:54
PROVIDERS: ATTEND Otolaryngology
DX: C04.9 Malignant neoplasm of floor of mouth, unspecified (principal); I10 Essential (primary) hypertension; M81.0 Age-related osteoporosis without current pathological fracture; K44.9 Diaphragmatic hernia without obstruction or gangrene; K21.9 Gastro-esophageal reflux disease without esophagitis; G47.00 Insomnia, unspecified; Z88.2 Allergy status to sulfonamides; Z88.8 Allergy status to other drugs, medicaments and biological substances; Z79.899 Other long term (current) drug therapy; F17.218 Nicotine dependence, cigarettes, with other nicotine-induced disorders
CPT/HCPCS: 41116; 88305; J0697; J1100; J2250; J2405; J3010

== ENCOUNTER → 2019-02-17 | Outpatient (CLI) | payer BC ==
[~2019-02-17] MED LIST changes: -LR 1,000 ML IV ONE; -dexameTHASONE 4 MG/ML 1ML VIAL (J1100) IV ONE
--- NOTE | 2019-02-17 12:22 | REP ---
LOW DOSE LUNG SCREENING CT: Low dose lung screening CT is performed without the use of intravenous contrast and compared with a prior study of 02/23/2018. There is very mild fibrotic change bilaterally, which is stable. There is no new nodular opacity or consolidative infiltrate bilaterally. Heart is normal in size. No mediastinal contour abnormality is seen. There is no thoracic aortic aneurysm. There is no pleural effusion. There are degenerative changes of the spine. IMPRESSION: Lung RADS category 2 benign findings, stable. No new nodular opacity or consolidative infiltrate. Yearly screening lung CT recommended. Electronically Signed by Colin Easton MD 02/17/2019 04:52 P
== END ==
LOC: M RAD 11:11
PROVIDERS: ATTEND Radiology Radiation Oncology
DX: F17.210 Nicotine dependence, cigarettes, uncomplicated (principal)

== ENCOUNTER → 2020-02-14 | Outpatient (CLI) | payer BC ==
[~2020-02-14] MED LIST changes: +NIFE1TAB52 PO; -NIFE30TA7 PO; +PANT40TA29 PO; -PANT40TA3 PO
--- NOTE | 2020-02-14 08:50 | REPMRS ---
Patient History The patient states she had a clinical breast exam in 07/18 Patient is postmenopausal. Family history of unknown cancer at age 50 or over in mother, unknown cancer at age 50 or over in father. Took hormonal contraceptives for 15 years. Took estrogen for 8 years. Digital Woman Screen Mammo: February 14, 2020 - Exam #: [id number] Bilateral CC and MLO view(s) were taken. Technologist: Erna Joya, Technologist Prior study comparison: December 30, 2018, bilateral digital mammo screening bilat, performed at [facility]. November 24, 2017, bilateral digital mammo screening bilat, performed at [facility]. October 28, 2016, bilateral digital mammo screening bilat, performed at [facility]. FINDINGS: The breast tissue is extremely dense which could obscure a lesion on mammography. The Volpara volumetric breast density category is: D. There is an extremely dense symmetrical pattern of residual fibroglandular tissue. There has been no change in the appearance of the mammogram from the previous studies. There is no interval development of dominant mass, archetectural distortion, or grouped microcalcifications suggestive of malignancy. 3-D tomosynthesis shows no additional findings. Assessment: BI-RADS/ACR category 1 mammogram. Negative Mammogram. Recommendation Routine screening mammogram of both breasts in 1 year (for women over age 40). This patient's [facility] Lifetime Breast Cancer RIsk is estimated at 6.2 %. This mammogram was interpreted with the aid of an FDA-approved computer-aided dectection system. Electronically Signed By: Jarek Aranda MD 02/14/20 0829
== END ==
LOC: M WHC 06:20
PROVIDERS: ATTEND Internal Medicine
DX: Z12.31 Encounter for screening mammogram for malignant neoplasm of breast (principal); Z80.9 Family history of malignant neoplasm, unspecified

== ENCOUNTER → 2020-05-08 | Outpatient (CLI) | payer BC ==
[~2020-05-08] MED LIST changes: -ALEN70TA74 PO; +ALEN70TA82 PO
--- NOTE | 2020-05-08 08:23 | REP ---
INDICATION: LUNG SCREENING EXAM COMPARISON: 02/17/2019, 02/23/2018 TECHNIQUE: Axial noncontrast images from the thoracic inlet to the upper abdomen using low-dose lung screening technique (LDCT). FINDINGS: The bilateral lung cutler are well aerated, relatively symmetric and clear. Previously identified 3 mm nodule in the periphery of the right upper lobe appears less prominent and likely reflects small scarring. No acute consolidation, significant nodule or mass lesion appreciated. No pleural effusion. No pneumothorax. Tracheobronchial tree is patent. IMPRESSION: Lung-RADS category 2. No suspicious nodule or mass lesion. Management recommendations include annual low-dose CT surveillance. <Electronically signed by Elan Dent > 05/08/20 0819
== END ==
LOC: M RAD 06:53
PROVIDERS: ATTEND Internal Medicine
DX: Z12.2 Encounter for screening for malignant neoplasm of respiratory organs (principal); F17.210 Nicotine dependence, cigarettes, uncomplicated

== ENCOUNTER → 2020-12-05 | Outpatient (CLI) | payer BC ==
[~2020-12-05] MED LIST changes: +GABA-283 PO; -GABA-845 PO
--- NOTE | 2020-12-05 09:08 | REP ---
INDICATION: LEFT AXILLARY LUMP. Left breast lump x2 months. Patient reports COVID 19 immunization shots in the left arm in March. COMPARISON: Comparison mammography February 14 2020, December 30, 2018, and November 24, 2017. TECHNIQUE: Routine CC and MLO views of the left breast are obtained. 3D tomography is deployed. The palpable lump location could not be included in the imaging field of view mammographically. Targeted left axillary and complete left axillary sonography or therefore performed. This mammogram was interpreted with the aid of an FDA-approved computer-aided detection system. FINDINGS: Breast parenchyma remains extremely dense in a pattern which may inhibit the sensitivity mammography. No dominant density is seen. No architectural distortion or microcalcification is appreciated. No worrisome skin changes seen. No adenopathy is visible in the imaged portion of the left axilla. The Volpara volumetric breast density pattern is D. Targeted ultrasound: Left axillary and targeted sonography are performed. At the site of the palpable lump, there is a lymph node measuring 1.0 x 0.5 x 0.8 cm. This has a normal thickness, 2 mm, cortical margin. Echogenic fatty hilar architecture is preserved. No abnormal features. Elsewhere in the left breast there are several other lymph nodes. Cortical margins are cyst somewhat thinner on these other lymph nodes in the are also benign in appearance. The largest of these is 2.1 x 0.8 x 1.4 cm. IMPRESSION: BIRADS/ACR category 3 probably benign left breast/axillary mammographic and sonographic findings. Benign appearing lymph node at the site of the palpable lump. This patient's Tyrer-Cuzick lifetime breast cancer risk assessment score is 6.0%. RECOMMENDATION: Repeat left axillary sonography recommended in 6 months. Repeat bilateral mammography in 1 year. The patient letter being requested is M 3 dense. <Electronically signed by Jarek Aranda > 12/05/20 0925
== END ==
LOC: M WHC 07:52
PROVIDERS: ATTEND Internal Medicine
DX: N63.32 Unspecified lump in axillary tail of the left breast (principal)
CPT/HCPCS: 76882; 77065; G0279

== ENCOUNTER → 2021-02-14 | Outpatient (CLI) | payer BC | LOC: M WHC 07:57 | PROVIDERS: ATTEND Internal Medicine | DX: Z12.31 Encounter for screening mammogram for malignant neoplasm of breast (principal); M81.0 Age-related osteoporosis without current pathological fracture ==

== ENCOUNTER → 2021-05-09 | Outpatient (CLI) | payer BC | LOC: M RAD 07:04 | PROVIDERS: ATTEND Internal Medicine | DX: R91.1 Solitary pulmonary nodule (principal); Z12.2 Encounter for screening for malignant neoplasm of respiratory organs; F17.210 Nicotine dependence, cigarettes, uncomplicated ==

== ENCOUNTER → 2021-06-18 | Outpatient (CLI) | payer BC | LOC: M WHC 06:49 | PROVIDERS: ATTEND Internal Medicine | DX: N63.20 Unspecified lump in the left breast, unspecified quadrant (principal) ==

== ENCOUNTER → 2022-05-13 | Outpatient (CLI) | payer BC ==
[~2022-05-13] MED LIST changes: +ALEN70TA87 PO; +FISH10005 PO; -FISH7.5C PO; -FOSA70TA PO
== END ==
LOC: M RAD 06:08
PROVIDERS: ATTEND Internal Medicine
DX: M54.14 Radiculopathy, thoracic region (principal)

== ENCOUNTER → 2022-05-18 | Outpatient (CLI) | payer BC | LOC: M RAD 06:24 | PROVIDERS: ATTEND Internal Medicine | DX: Z87.891 Personal history of nicotine dependence (principal) ==

== ENCOUNTER 2022-07-25 02:38 | Emergency (ER) | payer BC ==
[~2022-07-25] VITALS: Ht 170.2 cm; Wt 54.0 kg
[2022-07-25 06:04] VITALS: BP 156/74
[2022-07-25] MEDS ORDERED: NS 1,000 ML IV ONE (06:20)
[2022-07-25] MEDS ORDERED: ONDANSETRON 4MG 2ML VIAL IV ONE (06:20)
[2022-07-25] MEDS ORDERED: MORPHINE 4 MG/ML 1ML VIAL IV ONE (06:20)
[2022-07-25] MEDS ORDERED: LIDOCAINE 5% (LIDODERM) PATCH TD ONE (06:20)
[2022-07-25] MEDS ORDERED: ISOVUE-370 76% 100ML VIAL As Ordered ONE (06:24)
[2022-07-25 06:49] LABS: BASO # 0.1 10^3/uL (0.0-0.2); BASO % 1.1 % (0.0-1.0); EOS # 0.1 10^3/uL (0.0-0.5); EOS % 1.3 % (0.0-3.0); HEMATOCRIT 36.6 % (36.0-47.0); HEMOGLOBIN 12.8 g/dl (12.0-15.5); LYMPH # 1.5 10^3/uL (1.5-5.0); MEAN CORPUSCULAR HEMOGLOBIN 34.3 pg (27.0-33.0); MEAN CORPUSCULAR VOLUME 98.1 fl (80.0-96.0); MONO % 11.3 % (2.0-8.0); NEUTROPHILS # 5.7 10^3/uL (1.5-8.5); NEUTROPHILS % 67.7 % (36.0-66.0); PLATELET COUNT, AUTOMATED 262 10^3/uL (150-450); RED BLOOD COUNT 3.73 10^6/uL (4.00-5.40); WHITE BLOOD COUNT 8.4 10^3/uL (4.0-10.0)
[2022-07-25 07:08] LABS: ALBUMIN 4.5 G/DL (3.2-5.2); BILIRUBIN,DIRECT 0.2 MG/DL (<0.4); BILIRUBIN,TOTAL 0.5 MG/DL (0.3-1.2); TOTAL PROTEIN 7.6 G/DL (5.7-8.2)
[2022-07-25] MEDS ORDERED: ASPE4PAD TOP (07:46)
== END 2022-07-25 08:07 | disposition home or self-care (01) ==
LOC: M ED 02:38
DX: S30.811A Abrasion of abdominal wall, initial encounter (principal); W10.8XXA Fall (on) (from) other stairs and steps, initial encounter; Y92.009 Unspecified place in unspecified non-institutional (private) residence as the place of occurrence of the external cause; Y93.01 Activity, walking, marching and hiking; Y99.8 Other external cause status; I10 Essential (primary) hypertension; M81.0 Age-related osteoporosis without current pathological fracture; F17.200 Nicotine dependence, unspecified, uncomplicated; Z88.2 Allergy status to sulfonamides; Z88.8 Allergy status to other drugs, medicaments and biological substances; Z79.899 Other long term (current) drug therapy
CPT/HCPCS: 74177; 80047; 80076; 85025; 96374; 96375; 99284; J2405; Q9967

== ENCOUNTER → 2022-07-30 | Outpatient (CLI) | payer BC ==
[~2022-07-30] MED LIST changes: +ASPE4PAD TOP
== END ==
LOC: M WHC 06:53
PROVIDERS: ATTEND Internal Medicine
DX: Z12.31 Encounter for screening mammogram for malignant neoplasm of breast (principal)

== ENCOUNTER → 2022-08-21 | Outpatient (CLI) | payer BC | LOC: M RAD 07:19 | PROVIDERS: ATTEND Internal Medicine | DX: M54.6 Pain in thoracic spine (principal) ==

== ENCOUNTER → 2022-10-27 | Outpatient (REF) | payer BC ==
[~2022-10-27] MED LIST changes: -GABA-283 PO; +GABA-284 PO
[2022-10-28 13:35] LABS: PERCENT SATURATION 41.4 % (13.2-45.0)
== END ==
LOC: M LAB REF 12:16
PROVIDERS: ATTEND Internal Medicine
DX: D64.9 Anemia, unspecified (principal)

== ENCOUNTER → 2023-05-28 | Outpatient (CLI) | payer BC | LOC: M PLAIMG 07:30 | PROVIDERS: ATTEND Internal Medicine | DX: R94.01 Abnormal electroencephalogram [EEG] (principal) ==

== ENCOUNTER → 2023-06-08 | Outpatient (CLI) | payer BC | LOC: M RAD 06:32 | PROVIDERS: ATTEND Internal Medicine | DX: Z87.891 Personal history of nicotine dependence (principal) ==

== ENCOUNTER → 2023-07-12 | Outpatient (CLI) | payer BC | LOC: M PLARAD 10:54 | PROVIDERS: ATTEND Internal Medicine | DX: R91.1 Solitary pulmonary nodule (principal) | CPT/HCPCS: 78815; A9552 ==

== ENCOUNTER → 2023-08-03 | Outpatient (CLI) | payer BC | LOC: M RAD 07:03 | PROVIDERS: ATTEND Internal Medicine Pulmonary Disease | DX: R91.8 Other nonspecific abnormal finding of lung field (principal) ==

== ENCOUNTER 2023-08-11 08:13 | Day surgery (SDC) | payer BC ==
[~2023-08-11] VITALS: Ht 170.2 cm; Wt 51.3 kg
[2023-08-11] MEDS: LIDOCAINE PRES-FREE 2% 10ML AMP INH ONE (06:00)
[~2023-08-11 08:13] MED LIST changes: +CETACAINE SPRAY 5GM As Ordered ONE; +EPINEPHrine 1MG/10ML SYRINGE 1.5IN As Ordered ONE
[2023-08-11] MEDS: LR 1,000 ML IV SCH (09:09)
[2023-08-11] MEDS ORDERED: ONDANSETRON 4MG 2ML VIAL As Ordered ONE (09:33)
[2023-08-11] MEDS ORDERED: LIDOCAINE 2% 100MG/5ML SDV (FOR ANES.) As Ordered ONE (09:33)
[2023-08-11] MEDS ORDERED: MIDAZOLAM INJ 2MG/2ML VIAL As Ordered ONE (09:33)
[2023-08-11] MEDS ORDERED: SUGAMMADEX SODIUM 500 MG/5 ML VIAL (BRIDION) As Ordered ONE (09:33)
[2023-08-11] MEDS ORDERED: propofoL 200 MG/20 ML VIAL As Ordered ONE (09:33)
[2023-08-11] MEDS ORDERED: fentaNYL 100 MCG/2 ML INJECTION As Ordered ONE (09:33)
[2023-08-11] MEDS ORDERED: ROCURONIUM BROMIDE 50MG/5ML VIAL As Ordered ONE (09:33)
[2023-08-11] MEDS: ALBUTEROL SULFATE 2.5MG/0.5ML INH NEB SOLN INH ONE (10:04)
[2023-08-11] MEDS ORDERED: ePHEDrine SULFATE 25 MG/5 ML(5MG/ML) SYRINGE As Ordered ONE (11:08)
[2023-08-11] MEDS ORDERED: dexmedeTOMIDine (4MCG/ML)200MCG/50ML BTL (PRECEDEX) As Ordered ONE (11:13)
[2023-08-11] MEDS ORDERED: oxyCODONE 5MG TAB PO PRN (12:05)
[2023-08-11] MEDS ORDERED: ONDANSETRON 4MG 2ML VIAL IV PRN (12:05)
[2023-08-11] MEDS ORDERED: fentaNYL 100 MCG/2 ML INJECTION IV PRN (12:05)
[2023-08-11 12:40] VITALS: BP 153/67; TEMP 97.9; O2SAT 98
== END 2023-08-11 12:57 | disposition home or self-care (01) ==
LOC: M SDC 08:13
PROVIDERS: ATTEND Internal Medicine Pulmonary Disease
DX: C34.12 Malignant neoplasm of upper lobe, left bronchus or lung (principal); Z88.2 Allergy status to sulfonamides; Z79.899 Other long term (current) drug therapy; F17.210 Nicotine dependence, cigarettes, uncomplicated
CPT/HCPCS: 31626; 31627; 31628; 31629; 31652; 31654; 71045; 76000; 88173; 88305; 88309; C1601; J0171; J1100; J2250; J2405; J3010

== ENCOUNTER → 2023-09-27 | Outpatient (CLI) | payer BC ==
[~2023-09-27] MED LIST changes: -CETACAINE SPRAY 5GM As Ordered ONE; -EPINEPHrine 1MG/10ML SYRINGE 1.5IN As Ordered ONE; +ISOVUE-370 76% 100ML VIAL As Ordered ONE
== END ==
LOC: M RAD 10:08
PROVIDERS: ATTEND Surgery
DX: C34.12 Malignant neoplasm of upper lobe, left bronchus or lung (principal)

== ENCOUNTER → 2023-12-31 | Outpatient (REF) | payer BC ==
[~2023-12-31] MED LIST changes: -ISOVUE-370 76% 100ML VIAL As Ordered ONE
== END ==
LOC: M LAB REF 12:36
PROVIDERS: ATTEND Internal Medicine
DX: R05.9 Cough, unspecified (principal); R06.02 Shortness of breath

== ENCOUNTER → 2024-01-10 | Outpatient (CLI) | payer BC | LOC: M RAD 06:52 | PROVIDERS: ATTEND Internal Medicine | DX: R05.9 Cough, unspecified (principal) ==

== ENCOUNTER → 2024-02-04 | Outpatient (CLI) | payer BC ==
[~2024-02-04] MED LIST changes: +ISOVUE-370 76% 100ML VIAL As Ordered ONE
== END ==
LOC: M RAD 08:25
PROVIDERS: ATTEND Nurse Practitioner Family
DX: C34.12 Malignant neoplasm of upper lobe, left bronchus or lung (principal)

== ENCOUNTER → 2024-03-07 | Outpatient (REF) | payer BC ==
[~2024-03-07] MED LIST changes: -ISOVUE-370 76% 100ML VIAL As Ordered ONE
== END ==
LOC: M LAB REF 13:29
PROVIDERS: ATTEND Internal Medicine
DX: D64.9 Anemia, unspecified (principal)

== ENCOUNTER 2024-09-04 07:43 | Outpatient (RCR) | payer OTHER ==
[~2024-09-04 07:43] MED LIST changes: +GABA-1171 PO; +METH-1164 PO; +OXYC-517 PO; +TRAV04OPD OU
== END 2024-09-28 ==
LOC: M PT 07:43
PROVIDERS: ATTEND Physician Assistant
DX: S72.142A Displaced intertrochanteric fracture of left femur, initial encounter for closed fracture (principal)

== ENCOUNTER → 2024-09-27 | Outpatient (CLI) | payer OTHER | LOC: M SOG 06:56 | PROVIDERS: ATTEND Physician Assistant | DX: S72.142D Displaced intertrochanteric fracture of left femur, subsequent encounter for closed fracture with routine healing (principal); Y93.9 Activity, unspecified; Y92.9 Unspecified place or not applicable ==

== ENCOUNTER 2024-10-24 09:53 | Outpatient (RCR) | payer OTHER | END 2024-10-29 | LOC: M PT 09:53 | PROVIDERS: ATTEND Physician Assistant | DX: S72.142A Displaced intertrochanteric fracture of left femur, initial encounter for closed fracture (principal); X58.XXXA Exposure to other specified factors, initial encounter; Y92.9 Unspecified place or not applicable ==

== ENCOUNTER 2024-11-03 08:23 | Outpatient (RCR) | payer OTHER | END 2024-11-28 | LOC: M PT 08:23 | PROVIDERS: ATTEND Physician Assistant | DX: S72.142D Displaced intertrochanteric fracture of left femur, subsequent encounter for closed fracture with routine healing (principal); W18.30XD Fall on same level, unspecified, subsequent encounter ==

== ENCOUNTER → 2024-11-08 | Outpatient (CLI) | payer OTHER | LOC: M SOG 06:54 | PROVIDERS: ATTEND Physician Assistant | DX: S72.142D Displaced intertrochanteric fracture of left femur, subsequent encounter for closed fracture with routine healing (principal) ==

== ENCOUNTER 2024-12-13 03:50 | Emergency (ER) | payer BC, OTHER ==
[~2024-12-13] VITALS: Ht 170.2 cm; Wt 50.9 kg
[2024-12-13 03:55] VITALS: TEMP 97.9
[2024-12-13 06:04] VITALS: BP 162/74
[2024-12-13 06:05] VITALS: O2SAT 98
[2024-12-13] MEDS ORDERED: LIDO1ADH93 TOP (06:28)
[2024-12-13] MEDS ORDERED: IBUP600T42 PO (06:28)
[2024-12-13] MEDS: IBUPROFEN 600 MG TAB PO ONE (06:34)
[2024-12-13] MEDS: LIDOCAINE 5% PATCH TD ONE (06:34)
== END 2024-12-13 06:51 | disposition home or self-care (01) ==
LOC: M ED 03:50
DX: S83.92XA Sprain of unspecified site of left knee, initial encounter (principal); Y92.9 Unspecified place or not applicable; Y93.9 Activity, unspecified; Y99.9 Unspecified external cause status; W18.31XA Fall on same level due to stepping on an object, initial encounter; I10 Essential (primary) hypertension; R91.1 Solitary pulmonary nodule; F17.210 Nicotine dependence, cigarettes, uncomplicated; F12.10 Cannabis abuse, uncomplicated; F10.10 Alcohol abuse, uncomplicated; Z88.2 Allergy status to sulfonamides; Z79.1 Long term (current) use of non-steroidal anti-inflammatories (NSAID); Z79.899 Other long term (current) drug therapy

== ENCOUNTER → 2024-12-29 | Outpatient (CLI) | payer BC ==
[~2024-12-29] MED LIST changes: +IBUP600T42 PO; +LIDO1ADH93 TOP
== END ==
LOC: M SOG 07:18
PROVIDERS: ATTEND Orthopaedic Surgery
DX: M25.562 Pain in left knee (principal); Z53.9 Procedure and treatment not carried out, unspecified reason

== ENCOUNTER → 2025-02-12 | Outpatient (CLI) | payer BC ==
[~2025-02-12] MED LIST changes: -FISH10005 PO; +FISH1CAP38 PO; +ISOVUE-370 76% 100 ML VIAL As Ordered ONE
== END ==
LOC: M RAD 07:49
PROVIDERS: ATTEND Physician Assistant
DX: C34.12 Malignant neoplasm of upper lobe, left bronchus or lung (principal); J43.9 Emphysema, unspecified
CPT/HCPCS: 71260; 82565; Q9967